=== PATIENT | female | born 1995 | race Caucasian/White ===

== ENCOUNTER 2024-07-14 02:53 | Emergency (ER) | payer MEDICAID ==
[~2024-07-14] VITALS: Ht 154.9 cm; Wt 77.3 kg
[2024-07-14 03:06] VITALS: O2SAT 98
[2024-07-14 04:01] LABS: BASOPHILS % 0.5 % (0.0-2.0); EOSINOPHILS % 5.3 % (0.0-5.0); HEMATOCRIT. 41.1 % (36.0-48.0); HEMOGLOBIN. 13.6 g/dL (12.0-16.0); LYMPHOCYTES % 33.9 % (20.0-50.0); MEAN CORPUSCULAR HEMOGLOBIN 31.9 pg (28.0-32.0); MEAN CORPUSCULAR HGB CONC 33.1 g/dL (31.0-37.0); MEAN CORPUSCULAR VOLUME 96.4 fL (81.0-99.0); MEAN PLATELET VOLUME 8.6 fl (7.4-10.4); MONOCYTES % 5.6 % (2.0-8.0); NEUTROPHILS % 54.7 % (40.0-76.0); PLATELET 259 x1000/uL (130-400); RED BLOOD CELL COUNT 4.27 mill/uL (4.2-5.4); RED CELL DISTRIBUTION WIDTH 13.8 % (11.6-14.6)
[2024-07-14 04:07] LABS: CHLORIDE 107 mEq/L (98-107); POTASSIUM 3.3 mEq/L (3.5-5.1); SODIUM 142 mEq/L (136-145)
[2024-07-14 04:08] LABS: CARBON DIOXIDE 25 mEq/L (21-32)
[2024-07-14 04:09] LABS: CALCIUM 9.5 mg/dL (8.7-10.4)
[2024-07-14 04:13] LABS: CREATININE 0.7 mg/dL (0.6-1.0); GLUCOSE 118 mg/dL (70-105)
[2024-07-14 04:14] LABS: UREA NITROGEN BLOOD 10 mg/dL (9-23)
[2024-07-14 04:15] LABS: ALANINE AMINOTRANSFERASE 21 IU/L (10-49); ALBUMIN 4.4 g/dL (3.2-4.8); ASPARTATE AMINOTRANSFERASE 22 IU/L (<34)
[2024-07-14 04:16] LABS: BILIRUBIN TOTAL 0.3 mg/dL (0.1-1.0); PROTEIN TOTAL 7.6 g/dL (6.0-8.3)
[2024-07-14 04:38] LABS: TROPONIN I HIGH SENSITIVITY < 4 ng/L (3.0-34)
[2024-07-14 05:18] VITALS: BP 115/77; PULSE 76; RESP 17; TEMP 37.00296; O2SAT 98
== END 2024-07-14 05:29 | disposition home or self-care (01) ==
LOC: ER 02:53
DX: F41.9 Anxiety disorder, unspecified (principal); J45.909 Unspecified asthma, uncomplicated; Z98.890 Other specified postprocedural states
CPT/HCPCS: 36415; 71045; 80053; 84484; 85025; 93005; 99285